=== PATIENT | male | born 1975 | race African-American/Black ===

== ENCOUNTER 2016-04-13 23:16 | Emergency (ER) | payer BC, OTHER ==
[2016-04-13 23:33] VITALS: BP 127/86; PULSE 109; TEMP 99.2; BMI 26.6
[2016-04-14] MEDS ORDERED: KETOROLAC TROMETHAMINE 60 MG/2 ML VIAL IM ONE (01:17)
[2016-04-14] MEDS ORDERED: KETOROLAC TROMETHAMINE 60 MG/2 ML VIAL ONE (01:23)
--- NOTE | 2016-04-14 01:45 | PDOC ---
History of Present Illness - General Chief Complaint: Pain Stated Complaint: RT SIDE HIP PAIN Time Seen by Provider: 04/13/16 23:20 History Source: Patient Exam Limitations: No Limitations - History of Present Illness Timing/Duration: other (1 month) Associated Symptoms: reports: denies symptoms Past History - Travel Traveled outside of the country in the last 30 days: No Close contact w/someone who was outside of country & ill: No - Past Medical History Allergies/Adverse Reactions: Allergies Allergy/AdvReac Type Severity Reaction Status Date / Time No Known Allergies Allergy Verified 04/13/16 23:33 Home Medications: Ambulatory Orders Ketorolac Tromethamine [Toradol] 10 mg PO BID #12 tablet 04/14/16 Other medical history: pt denies - Psycho/Social/Smoking Cessation Hx Suicidal Ideation: No Smoking History: Never smoked Information on smoking cessation initiated: No Hx Alcohol Use: No Drug/Substance Use Hx: No Substance Use Type: None Review of Systems - Review of Systems Able to Perform ROS?: Yes Comments:: 04/14/16 01:51 CONSTITUTIONAL: Absent: fever, chills, diaphoresis, generalized weakness, malaise, loss of appetite Absent: chest pain, loss of consciousness, palpitations, irregular heart rate, peripheral edema RESPIRATORY: Absent: cough, shortness of breath, dyspnea with exertion, orthopnea, wheezing, stridor, hemoptysis GASTROINTESTINAL: Absent: abdominal pain, abdominal distension, nausea, vomiting, diarrhea, constipation, melena, hematochezia GENITOURINARY: Absent: dysuria, frequency, urgency, hesitancy, hematuria, flank pain, genital pain MUSCULOSKELETAL: Pain radiating from hip to mid right buttock +pain to ant mid greater trochanteric Absent: myalgia, arthralgia, joint swelling SKIN: Absent: rash, itching, pallor HEMATOLOGIC/IMMUNOLOGIC: Absent: easy bleeding, easy bruising, lymphadenopathy, frequent infections ENDOCRINE: Absent: unexplained weight gain, unexplained weight loss, heat intolerance, cold intolerance 04/14/16 01:52 Is the patient limited Marshallese proficient: No *Physical Exam - Vital Signs Last Vital Signs Temp Pulse Resp BP Pulse Ox 99.2 F 109 H 18 127/86 98 04/13/16 23:30 04/13/16 23:30 04/13/16 23:30 04/13/16 23:30 04/13/16 23:30 - Physical Exam Comments: 04/14/16 01:51 GENERAL: Well developed, well nourished. Awake and alert. No acute distress. HEENT: Normocephalic, atraumatic. PERRLA, EOMI. No conjunctival pallor. Sclera are non- icteric. Moist mucous membranes. Oropharynx is clear. NECK: Supple. Full ROM. No JVD. Carotid pulses 2+ and symmetric, without bruits. No thyromegaly. No lymphadenopathy. CARDIOVASCULAR: Regular rate and rhythm. No murmurs, rubs, or gallops. Distal pulses are 2+ and symmetric. PULMONARY: No evidence of respiratory distress. Lungs clear to auscultation bilaterally. No wheezing, rales or rhonchi. ABDOMINAL: Soft. Non-tender. Non-distended. No rebound or guarding. No organomegaly. Normoactive bowel sounds. MUSCULOSKELETAL +point tenderness to ant greater trochanteric on palp Normal range of motion at all joints. No bony deformities or tenderness. No CVA tenderness. EXTREMITIES: No cyanosis. No clubbing. No edema. No calf tenderness. SKIN: Warm and dry. Normal capillary refill. No rashes. No jaundice. NEUROLOGICAL: Alert, awake, appropriate. Cranial nerves 2-12 intact. No deficits to light touch and temperature in face, upper extremities and lower extremities. No motor deficits in the in face, upper extremities and lower extremities. Normoreflexic in the upper and lower extremities. Normal speech. Toes are down- going bilaterally. Gait is normal without ataxia. PSYCHIATRIC: Cooperative. Good eye contact. Appropriate mood and affect. ED Treatment Course - Medications Given in the ED: ED Medications Discontinued Medications Generic Name Dose Route Start Last Admin Trade Name Gurmeetq PRN Reason Stop Dose Admin Ketorolac Tromethamine 60 mg 04/14/16 01:17 04/14/16 01:32 Toradol Injection - IM 04/14/16 01:18 60 mg ONCE ONE Administration *DC/Admit/Observation/Transfer Diagnosis at time of Disposition: Right hip pain Sciatica Qualifiers: Laterality: right Qualified Code(s): M54.31 - Sciatica, right side - Discharge Dispostion Disposition: HOME Condition at time of disposition: Improved - Referrals Referrals: [facility] [Primary Care Provider] - Victor Manuel Macias MD [Staff Physician] - - Patient Instructions Printed Discharge Instructions: Help for Hip Pain, DI for Sciatica Additional Instructions: Follow up with the orthopedic surgeon listed on your discharge. Rest Tylenol/Motrin as needed for pain Return to the ER for severe/persistent/worsening symptoms Progress Note - Progress Note Progress Note: 41-year-old male presents to the emergency department complaining of right hip pain for approximately 1 month. Patient states ~5 weeks ago, he was lifting a heavy box causing a discomfort to the right hip. Patient has been seen at an urgent care center and was given an x-ray which shows no fracture/dislocation. Patient was discharged from the urgent care center with Percocets, Flexeril and advised to follow-up with an orthopedic surgeon. Patient states he didn't have time to follow-up with the specialist but wanted to get seen this evening after experiencing 7/10 sharp discomfort to the right anterior hip. Patient states it intermittently radiates to the right buttocks and down the right lateral mid thigh. The pain is exacerbated with movement and alleviated minimally with prescribed pain medicine. Patient denies any abdominal pains, flank pains, extremity numbness or tingling sensation, bladder or bowel dysfunction. 0505hrs: Pt feels better . will d/c
== END 2016-04-14 04:30 | disposition home or self-care (01) ==
LOC: JER 23:16
PROC: 3E0233Z Introduction of Anti-inflammatory into Muscle, Percutaneous Approach (ICD-10-PCS; principal; 2016-04-13)
DX: M54.31 Sciatica, right side (principal)
CPT/HCPCS: 99282-25